=== PATIENT | male | born 1965 | race Caucasian/White ===

== ENCOUNTER 2019-07-20 13:13 | Observation (INO) ==
[2019-07-20] MEDS ORDERED: Ondansetron 4 MG/2 ML VIAL IVP PRN (16:52)
[2019-07-20] MEDS ORDERED: Naloxone 0.4 MG/ML INJ IVP PRN (16:52)
[2019-07-20] MEDS ORDERED: Acetaminophen 325 MG TABLET PO PRN (16:52)
[2019-07-20] MEDS ORDERED: Mag Hydrox/Al Hydrox/Simeth 30 ML UDC PO PRN (16:52)
[2019-07-20] MEDS ORDERED: *HR* Promethazine 25 MG/ML VIAL IVP PRN (16:52)
[2019-07-20] MEDS ORDERED: Nitroglycerin 0.4 MG TAB.SUBL SL PRN (16:54)
[2019-07-20] MEDS: *HR* Heparin 5,000 UNIT/ML VIAL SQ SCH (17:23)
[2019-07-20] MEDS: lisinopriL 10 MG TABLET PO SCH (17:23)
[2019-07-20] MEDS: Nicotine 21 MG PATCH.TD24 TD SCH (20:49)
[2019-07-21 02:43] LABS: Basophils # 0.1 K/mcL (0.0-0.2); Basophils % 1.5 %; Eosinophils # 0.5 K/mcL (0.0-0.6); Hematocrit 42.6 % (37.5-50.1); Hemoglobin 14.4 g/dL (12.9-16.9); Immature Granulocytes % 0.5 % (0-4); Lymphocytes # 3.2 K/mcL (0.6-4.6); Lymphocytes % 37.3 %; Mean Corpuscular HGB Conc 33.8 g/dL (31.6-35.5); Mean Corpuscular Volume 91.6 fL (83.0-100.0); Mean Platelet Volume 9.2 fL (9.4-12.4); Monocytes # 0.7 K/mcL (0.0-1.3); Monocytes % 7.9 %; Neutrophils # 4.1 K/mcL (1.6-8.9); Platelet Count 300 K/mcL (140-400); Red Blood Count 4.65 M/mcL (4.19-5.50); Segmented Neutrophils % 46.8 %; White Blood Count 8.7 K/mcL (4.3-11.1)
[2019-07-21 03:02] LABS: BUN/Creatinine Ratio 14 (6-26); Blood Urea Nitrogen 15 mg/dL (6-20); Calcium 8.7 mg/dL (8.6-10.3); Carbon Dioxide 25 mEq/L (23-29); Chloride 106 mEq/L (98-107); Glucose 120 mg/dL (70-105); Osmolality,Calculated 288 (280-300); Phosphorous 4.4 mg/dL (2.7-4.5); Potassium 3.9 mEq/L (3.5-5.1); Sodium 138 mEq/L (136-145); eGFR For African Americans > 60 (> 60); eGFR For Non-African Americans > 60 (> 60)
[2019-07-21] MEDS: *HR* Heparin 5,000 UNIT/ML VIAL SQ SCH (05:13)
[2019-07-21] MEDS ORDERED: Aspirin Enteric Coated 81 MG Tablet PO SCH (09:00)
[2019-07-21] MEDS: lisinopriL 10 MG TABLET PO SCH (11:25)
[2019-07-21] MEDS: Nicotine 21 MG PATCH.TD24 TD SCH (11:25)
[2019-07-21 15:36] VITALS: BP 118/72
== END 2019-07-21 16:05 | disposition home or self-care (01) ==
LOC: 3BNU
PROVIDERS: ADMIT Internal Medicine; ATTEND Internal Medicine